=== PATIENT | male | born 1975 | race Caucasian/White ===

== ENCOUNTER 2020-01-11 13:22 | Emergency (ER) | payer OTHER, MEDICAID ==
[~2020-01-11] VITALS: Ht 172.7 cm; Wt 63.5 kg
[2020-01-11 14:25] VITALS: BP 102/55
[2020-01-11] MEDS ORDERED: ACETAMINOPHEN 500 MG TAB PO ONE (14:30)
[2020-01-11] MEDS ORDERED: ACETAMINOPHEN 325 MG TAB PO ONE (14:30)
== END 2020-01-11 17:26 | disposition home or self-care (01) ==
LOC: ER 13:22
DX: M48.061 Spinal stenosis, lumbar region without neurogenic claudication (principal); M54.16 Radiculopathy, lumbar region
CPT/HCPCS: 72131

== ENCOUNTER 2025-03-03 19:46 | Inpatient (IN) | payer OTHER, MEDICAID ==
[~2025-03-03] VITALS: Ht 172.7 cm; Wt 64.2 kg
[2025-03-03 20:04] VITALS: BP 119/69; PULSE 84; RESP 18; TEMP 99.1; O2SAT 100
--- NOTE | 2025-03-03 20:17 | ED.PDOC ---
Musculoskeletal HPI Comments HPI: 49 year old male presents to the ED with chief complaint of left foot/calf swelling and pain. Patient reports that he had started to experience sudden left lower leg and foot swelling 2 days ago with associated pain when walking. Patient relays that when he rests there is no pain to his leg. Patient denies any SOB, chest pain, numbness, weakness, dizziness, headache, or N/V. Initial Vitals: Temp: 99.1F BP: 119/69 HR: 84 RR: 18 O2 Sat: 100% Medical History: Schizophrenia, Lumbar Foraminal Stenosis, Lumbar Radiculopathy Surgical History: Denies Social History: Denies smoking, ETOH, or drug use. Medications: Reviewed. Allergies: NKDA HPI: Poor Historian. Pain with ambulation. Denies any chest pain or shortness of breath. Calf is swollen and tender to palpation. Denies any fall or trauma or injury. REVIEW OF SYSTEMS: CONSTITUTIONAL: Denies acute: fever, diaphoresis, chills, generalized weakness. HEAD: Denies acute: headache, photophobia Eyes: Denies acute: Double vision, vision loss, eye pain, eye discharge. EARS: Denies acute: tinnitus, hearing loss, ear discharge, ear pain, THROAT: Denies acute: sore throat, swelling, difficulty swallowing , pain with swallowing, change in voice. NECK: Denies acute: neck pain, neck swelling, stiff neck. HEART: Denies acute : chest pain, palpitations, LUNGS: Denies acute: SOB, wheezing, cough, hemoptysis ABDOMEN: Denies acute: abdominal pain, Nausea, Vomiting, diarrhea, melena , hematemesis, hematochezia SKIN: Denies acute: rash, redness, lesions, itchiness. EXTREMITIES: Denies acute: calf pain, numbness, tingling, weakness, Denies acute: Low back pain. Neuro: Denies acute: focal neurological deficit, motor or sensory focal neurological deficit, tremors, seizure like activity, confusion, dizziness, change in mental status, loss of bowel or bladder function, cauda equina like symptoms. : Denies acute: dysuria, hematuria, flank pain, increase in urinary frequency. PSYCH: Denies acute: hallucination, suicidal ideation, homicidal ideation. PHYSICAL EXAM: General: ----mild----acute distress, awake and alert. Head: normocephalic, atraumatic. Neck: supple, trachea is midline, no swelling. Throat: Normal phonation. Eyes:, no erythema, no purulent discharge, no proptosis, no icterus. Heart: regular rate, regular rhythm, no significant murmur appreciated. Lungs: no apparent respiratory distress, Able to speak in full sentences. No wheezing, no rhonchi, no crackles. No stridors Clear to auscultation bilaterally. Abdomen: non tender to palpation, non distended, soft, no guarding, no rebound, + bowel sounds. Neuro: Awake, Alert, oriented to name, self, situation, follows commands GCS=15. Speech is normal. Skin: no petechia, no purpura, no cyanosis, non-pale, not jaundice. Left Lower extremities: --2/4 - Pitting edema no deformity, noted generalized swelling [id number] to the ankle. Noted left calf tenderness to palpation. Patient is neurovascularly intact in the affected extremity. Pedal pulses palpable. Motor and sensory are present. Makes eye contact. moves all four extremities. Face: no apparent facial droop. Ambulating in the ED independently. ED COURSE: Chief Complaint: Extremity Swelling Time Seen by MD: 20:06 Primary Care Provider: TAI Reviewed Notes: Nurses Notes, Medications, Allergies Allergies: Uncoded Allergies: CHICKEN FEATHERS (Allergy, Severe, 01/11/20) Information Source: Patient Mode of Arrival: Ambulatory Location: Left Was a procedure done? Was a procedure done?: No Differential Diagnosis EXT Differential Diagnosis: Other (Leg swellingDdx include but not limited to DVT, ischemic limb, pitting edema, volume overload, CHF, cellulitis, hematoma, compartment syndrome, dependent edema, venous stasis. Insert red cellulitis) X-Ray, Labs, Meds, VS Vital Signs Date Time Temp Pulse Resp B/P (MAP) Pulse Ox O2 Delivery O2 Flow Rate FiO2 03/03/25 20:04 99.1 84 18 119/69 (86) 100 99.1 Lab Test 03/03/25 22:40 03/03/25 20:28 Range/Units D-Dimer, Quantitative 0.49 0.0-0.49 mg/L FEU White Blood Count 9.2 4.4-10.8 10^3/uL Red Blood Count 4.42 L 4.5-5.90 10^6/uL Hemoglobin 14.3 13.5-17.5 g/dL Hematocrit 42.1 41.0-53.0 % Mean Corpuscular Volume 95.2 80.0-100.0 fL Mean Corpuscular Hemoglobin 32.3 H 28.0-32.0 pg Mean Corpuscular Hemoglobin Concent 33.9 32.0-36.0 g/dL Red Cell Distribution Width 13.4 11.8-14.3 % Platelet Count 353 140-450 10^3/uL Mean Platelet Volume 6.6 L 6.9-10.8 fL Neutrophils (%) (Auto) 61.3 37.0-80.0 % Lymphocytes (%) (Auto) 20.9 10.0-50.0 % Monocytes (%) (Auto) 14.3 H 0.0-12.0 % Eosinophils (%) (Auto) 2.4 0.0-7.0 % Basophils (%) (Auto) 1.1 0.0-2.0 % Neutrophils # (Auto) 5.7 1.6-8.6 10 ^3/uL Lymphocytes # (Auto) 1.9 0.4-5.4 10 ^3/uL Monocytes # (Auto) 1.3 0-1.3 10 ^3/uL Eosinophils # (Auto) 0.2 0-0.8 10 ^3/uL Basophils # (Auto) 0.1 0-0.2 10 ^3/uL Nucleated Red Blood Cells 0.1 % Erythrocyte Sedimentation Rate 22 H 0-20 mm/hr Sodium Level 137 136-145 mmol/L Potassium Level 3.9 3.5-5.1 mmol/L Chloride Level 103 98-107 mmol/L Carbon Dioxide Level 24 20-31 mmol/L Anion Gap 10 5-15 Blood Urea Nitrogen 20 9-23 mg/dL Creatinine 0.95 0.700-1.30 mg/dL Glomerular Filtration Rate Calc 98 >90 mL/min BUN/Creatinine Ratio 21.1 H 10.0-20.0 Serum Glucose 89 74-106 mg/dL Lactic Acid Level 1.8 0.4-2.0 mmol/L Calcium Level 9.5 8.7-10.4 mg/dL Total Bilirubin 1.4 H 0.2-1.0 mg/dL Aspartate Amino Transferase (AST) 32 13-40 U/L Alanine Aminotransferase (ALT) 31 7-40 U/L Alkaline Phosphatase 119 H 46-116 U/L Troponin I High Sensitivity < 3 L </=54 ng/L C-Reactive Protein High Sensitivity 5.25 H <1.0 mg/dL B-Type Natriuretic Peptide 9.85 0-100 pg/mL Total Protein 6.9 5.7-8.2 g/dL Albumin 4.6 3.2-4.8 g/dL [place] [address] Ph: [phone] DIAGNOSTIC IMAGING Diagnostic Imaging Report : [id number] Signed PATIENT: JOSE AMES ACCT: [id number] UNIT: [id number] : 1975 LOC: ER ROOM / BED: / AGE / SEX: 49 / M ADM STATUS: REG ER SERVICE 13 ORDERING PHYSICIAN: STEFAN MOCTEZUMA DO PROCEDURE(s): LLDVT - LT Lower DVT REASON: pain swelling ORDER NUMBER(s): [id number], ACCESSION NUMBER(s): [id number] Left lower extremity venous duplex Clinical History: pain swelling Comparison: None Technique: Duplex Doppler evaluation of the deep venous system of the left lower extremity from the common femoral vein to the popliteal vein including color Doppler and spectral/pulsed waveform analysis was performed. Findings: The common femoral vein demonstrates appropriate compressibility and waveform variability. There is compressibility/patency of the great saphenous vein at the proximal thigh. The femoral vein demonstrates appropriate compressibility and waveform variability. The deep femoral vein demonstrates appropriate compressibility and waveform variability. The popliteal vein demonstrates appropriate compressibility and waveform variability. There is normal compressibility at the tibioperoneal trunk. Impression: No evidence of left femoropopliteal venous thrombosis. ATED BY: TEDDY ALMANZA MD DICTATED DATE/TIME: 03/03/252050 SIGNED BY: TEDDY ALMANZA MD SIGNED DATE/TIME: 03/03/252050 CC: Time of 1ST Reevaluation: 21:06 Reevaluation 1ST: Unchanged Patient Education/Counseling: Diagnosis, Treatment Family Education/Counseling: No Family Present Comments Patient presented with the above HPI.---left leg swelling and tenderness to palpation---workup was initiated. patient was found with the above mentioned diagnosis. the following medications were ordered: please refer to order lists of meds and tests obtained by myself Dr. Moctezuma. Patient ED course and VS have been stabilized. Patient has been reassessed in the ED and remained in a stable condition. Pertinent incidental findings were discussed with the patient and/or family. Patient/family voices understanding and is agreeable with plan. Patient has been observed in the ED adequate length of time to insure improvement/stability. Escalation of care considered: Consideration of escalation to observation or admission Rule out compartment syndrome, deep tissue infection, Patient was ADMITTED to the medicine team for further evaluation and treatment of their presentation. Patient was neurovascularly intact in the affected extremity. Pedal pulses palpable. Sensory and motor are present. D-dimer was normal. CRP and ESR were elevated. I started empiric antibiotics for possible cellulitis. All the reports of any imaging studies that were ordered by myself were reviewed by myself. Departure 1 Departure Time of Disposition: 22:44 Impression: Primary Impression: Left leg swelling Disposition: ADMITTED INPATIENT Admit to: [facility] Condition: Guarded Discharged With: Self Critical Care Note Critical Care Time?: No Heart Score Heart Score: Heart Score Response (Comments) Value History Slightly Suspicious 0 EKG Normal 0 Age 45-64 1 Risk Factors No known risk factors 0 Troponin Normal limit 0 Total 1 I personally scribed for STEFAN MOCTEZUMA DO ([email or web address]) on 03/03/25 at 20:17. Electronically submitted by Lawrence Whaley ([email or web address]). I personally scribed for STEFAN MOCTEZUMA DO ([email or web address]) on 03/04/25 at 21:37. Electronically submitted by Mary Maurer ([email or web address]). STEFAN MOCTEZUMA DO Mar 03, 2025 20:17
[2025-03-03 20:44] LABS: Basophils # (auto) 0.1 10 ^3/uL (0-0.2); Basophils % (auto) 1.1 % (0.0-2.0); Eosinophils # (auto) 0.2 10 ^3/uL (0-0.8); Eosinophils % (auto) 2.4 % (0.0-7.0); Hematocrit 42.1 % (41.0-53.0); Hemoglobin 14.3 g/dL (13.5-17.5); Lymphocytes # (auto) 1.9 10 ^3/uL (0.4-5.4); Lymphocytes % (auto) 20.9 % (10.0-50.0); Mean Corpuscular Hemoglobin 32.3 pg (28.0-32.0); Mean Corpuscular Hgb Conc. 33.9 g/dL (32.0-36.0); Mean Corpuscular Volume 95.2 fL (80.0-100.0); Monocytes # (auto) 1.3 10 ^3/uL (0-1.3); Monocytes % (auto) 14.3 % (0.0-12.0); Neutrophils # (auto) 5.7 10 ^3/uL (1.6-8.6); Neutrophils % (auto) 61.3 % (37.0-80.0); Nucleated Red Blood Cells % 0.1 %; Platelet Count (auto) 353 10^3/uL (140-450); Red Blood Cells 4.42 10^6/uL (4.5-5.90); Red Cell Distribution Width 13.4 % (11.8-14.3); White Blood Cell 9.2 10^3/uL (4.4-10.8)
--- NOTE | 2025-03-03 20:53 | DVH ---
Left lower extremity venous duplex Clinical History: pain swelling Comparison: None Technique: Duplex Doppler evaluation of the deep venous system of the left lower extremity from the common femor al vein to the popliteal vein including color Doppler and spectral/pulsed waveform analysis was perfo rmed. Findings: The common femoral vein demonstrates appropriate compressibility and waveform variability. There is compressibility/patency of the great saphenous vein at the proximal thigh. The femoral vein demonstrates appropriate compressibility and waveform variability. The deep femoral vein demonstrates appropriate compressibility and waveform variability. The popliteal vein demonstrates appropriate compressibility and waveform variability. There is normal compressibility at the tibioperoneal trunk. Impression: No evidence of left femoropopliteal venous thrombosis.
[2025-03-03 21:04] LABS: Alanine Aminotransferase 31 U/L (7-40); Albumin 4.6 g/dL (3.2-4.8); Anion Gap 10 (5-15); Aspartate Aminotransferase 32 U/L (13-40); BUN/Creatinine Ratio 21.1 (10.0-20.0); Blood Urea Nitrogen 20 mg/dL (9-23); Calcium 9.5 mg/dL (8.7-10.4); Carbon Dioxide 24 mmol/L (20-31); Chloride 103 mmol/L (98-107); Glucose 89 mg/dL (74-106); Potassium 3.9 mmol/L (3.5-5.1); Sodium 137 mmol/L (136-145); Total Protein 6.9 g/dL (5.7-8.2)
[2025-03-03 21:06] LABS: Alkaline Phosphatase 119 U/L (46-116); Bilirubin, Total 1.4 mg/dL (0.2-1.0)
[2025-03-03 21:33] LABS: Erythrocyte Sedimentation Rate 22 mm/hr (0-20)
[2025-03-03] MEDS ORDERED: CLINDAMYCIN 600MG IV 50 ML IV ONE (23:45)
[2025-03-04 02:11] LABS: Albumin 4.7 g/dL (3.2-4.8); Bilirubin, Total 1.1 mg/dL (0.2-1.0); Total Protein 7.3 g/dL (5.7-8.2)
--- NOTE | 2025-03-04 06:08 | DVHHPRES ---
History of Present Illness Resident Creating Document: ANA ZHENG RESIDENT History of Present Illness Patient is a 49-year-old male with past medical history of schizophrenia, dyslipidemia, who was brought in by son due to left lower extremity pain and discoloration. According to patient's son, 2 days ago patient started limping out of no where due to tenderness along the left calf muscles. Patient notes pain is worse with walking and relieved by sitting. Lexii sign positive, pain worsened by plantar flexion and dorsiflexion of the foot. Denies similar symptoms in the past lower extremity Doppler was negative. Patient noted to have difficulty bearing weight on the left lower extremity, however, is able to ambulate with limping. Past Medical History Schizophrenia, dyslipidemia Past Surgical History Denies Past Social History Smoking: Denies Alcohol: Drinks 1-2 beers daily Drugs: Smokes multiple bowls of marijuana daily Review of Systems Constitutional: No: Fever, Chills, Sweats, Weakness, Malaise, Other Eyes: No: Pain, Vision change, Conjunctivae inflammation, Eyelid inflammation, Other, Redness ENT: No: Ear pain, Ear discharge, Nose pain, Nose discharge, Nose congestion, Mouth pain, Mouth swelling, Throat pain, Throat swelling, Other Respiratory: No: Cough, Dry, Shortness of breath, SOB with excertion, Wheezing, Hemoptysis, Pleuritic Pain, Sputum, Wheezing, Other Cardiovascular: No: Chest Pain, Palpitations, Orthopnea, Paroxysmal Noc. Dyspnea, Edema, Lt Headedness, Other Gastrointestinal: No: Nausea, Vomiting, Abdominal Pain, Diarrhea, Constipation, Melena, Hematochezia, Other Genitourinary: No Dysuria, No Frequency, No Incontinence, No Hematuria, No Retention, No Other Musculoskeletal: leg pain; No: other, neck pain, shoulder pain, arm pain, back pain, hand pain, foot pain Skin: Other (Left calf swollen, tender to palpation); No: Rash, Lesions, Jaundice, Bruising Neurological: No: Weakness, Numbness, Incoordination, Change in speech, Confusion, Seizures, Other Allergies: Uncoded Allergies: CHICKEN FEATHERS (Allergy, Severe, 01/11/20) Exam Vital Signs Vital Signs Date Time Temp Pulse Resp B/P (MAP) Pulse Ox O2 Delivery O2 Flow Rate FiO2 03/03/25 20:04 99.1 84 18 119/69 (86) 100 99.1 General Appearance: Alert, Oriented X3, Cooperative, No acute distress HEENT: Atraumatic, PERRLA, EOMI Respiratory: Clear to auscultation, Normal air movement Cardiovascular: Regular rate, Normal S1, Normal S2 Abdominal: Normal bowel sounds, No tenderness Extremities: No edema, Normal pulses Neuro: Normal speech Psych/Mental Status: Other (Apprehensive about staying in the hospital, states people will harm him. AOx4) Labs/Xrays Labs Test 03/04/25 01:34 03/03/25 22:40 03/03/25 20:28 Range/Units Lactic Acid Level 1.2 0.4-2.0 mmol/L Total Bilirubin 1.1 H 0.2-1.0 mg/dL Aspartate Amino Transferase (AST) 29 13-40 U/L Alanine Aminotransferase (ALT) 30 7-40 U/L Alkaline Phosphatase 116 46-116 U/L Total Protein 7.3 5.7-8.2 g/dL Albumin 4.7 3.2-4.8 g/dL D-Dimer, Quantitative 0.49 0.0-0.49 mg/L FEU White Blood Count 9.2 4.4-10.8 10^3/uL Red Blood Count 4.42 L 4.5-5.90 10^6/uL Hemoglobin 14.3 13.5-17.5 g/dL Hematocrit 42.1 41.0-53.0 % Mean Corpuscular Volume 95.2 80.0-100.0 fL Mean Corpuscular Hemoglobin 32.3 H 28.0-32.0 pg Mean Corpuscular Hemoglobin Concent 33.9 32.0-36.0 g/dL Red Cell Distribution Width 13.4 11.8-14.3 % Platelet Count 353 140-450 10^3/uL Mean Platelet Volume 6.6 L 6.9-10.8 fL Neutrophils (%) (Auto) 61.3 37.0-80.0 % Lymphocytes (%) (Auto) 20.9 10.0-50.0 % Monocytes (%) (Auto) 14.3 H 0.0-12.0 % Eosinophils (%) (Auto) 2.4 0.0-7.0 % Basophils (%) (Auto) 1.1 0.0-2.0 % Neutrophils # (Auto) 5.7 1.6-8.6 10 ^3/uL Lymphocytes # (Auto) 1.9 0.4-5.4 10 ^3/uL Monocytes # (Auto) 1.3 0-1.3 10 ^3/uL Eosinophils # (Auto) 0.2 0-0.8 10 ^3/uL Basophils # (Auto) 0.1 0-0.2 10 ^3/uL Nucleated Red Blood Cells 0.1 % Erythrocyte Sedimentation Rate 22 H 0-20 mm/hr Sodium Level 137 136-145 mmol/L Potassium Level 3.9 3.5-5.1 mmol/L Chloride Level 103 98-107 mmol/L Carbon Dioxide Level 24 20-31 mmol/L Anion Gap 10 5-15 Blood Urea Nitrogen 20 9-23 mg/dL Creatinine 0.95 0.700-1.30 mg/dL Glomerular Filtration Rate Calc 98 >90 mL/min BUN/Creatinine Ratio 21.1 H 10.0-20.0 Serum Glucose 89 74-106 mg/dL Calcium Level 9.5 8.7-10.4 mg/dL Troponin I High Sensitivity < 3 L </=54 ng/L B-Type Natriuretic Peptide 9.85 0-100 pg/mL Assessment/Plan Assessment/Plan Probable left lower extremity cellulitis Ruled out left lower extremity DVT - lower extremity venous Doppler: No evidence of left femoropopliteal venous thrombosis - 1 dose clindamycin - ordered left lower extremity CT scan - cefazolin daily - blood culture - serum lactic acid level - elevated ESR - D-dimer negative History of schizophrenia, nonadherent with medication - monitor Marijuana dependence - counseled DVT prophylaxis: Levonox 40mg Goals of care: Full code, discussed for >16 minutes on 03/04/2025 Plan discussed with patient Plan discussed with Dr. Garcia Plan discussed with: Patient, Spouse, Son, Other (RN) My Orders Orders - ANA ZHENG RESIDENT Procedure Category Date Status Time Admit ADMIT 03/04/25 Transmitted 01:08 Code Status CODE 03/04/25 Transmitted 01:08 Electrocardigram EKG 03/04/25 Logged 01:08 Blood Culture BRENDEN 03/04/25 In Process 01:08 Urinalysis LAB 03/04/25 Logged 01:08 Drug Screen LAB 03/04/25 Logged 01:08 Hepatic Panel LAB 03/04/25 In Process 01:08 Mrsa Screen BRENDEN 03/04/25 Logged 01:18 Date of Service: Mar 04, 2025 Billing Provider: JUAN GARCIA MD Common Visit Codes: [id number] INP/OBS CARE (HIGH) ANA ZHENG RESIDENT Mar 04, 2025 06:08 JUAN GARCIA MD Mar 04, 2025 10:03
[2025-03-04] MEDS ORDERED: ENOXAPARIN SOD 40 MG/0.4 ML SYRINGE SC SCH (10:00)
--- NOTE | 2025-03-04 12:47 | DVHDSRES ---
Discharge Summary Date of Admission Resident Creating Document: ANA ZHENG RESIDENT Mar 04, 2025 at 01:08 Date of Discharge: Mar 04, 2025 Admitting Diagnosis L lower extremity pain Labs/Diagnostic Data: Laboratory Results Test 03/04/25 01:34 03/03/25 22:40 03/03/25 20:28 Lactic Acid Level 1.2 mmol/L (0.4-2.0) Total Bilirubin 1.1 mg/dL (0.2-1.0) Aspartate Amino Transferase (AST) 29 U/L (13-40) Alanine Aminotransferase (ALT) 30 U/L (7-40) Alkaline Phosphatase 116 U/L (46-116) Total Protein 7.3 g/dL (5.7-8.2) Albumin 4.7 g/dL (3.2-4.8) D-Dimer, Quantitative 0.49 mg/L FEU (0.0-0.49) White Blood Count 9.2 10^3/uL (4.4-10.8) Red Blood Count 4.42 10^6/uL (4.5-5.90) Hemoglobin 14.3 g/dL (13.5-17.5) Hematocrit 42.1 % (41.0-53.0) Mean Corpuscular Volume 95.2 fL (80.0-100.0) Mean Corpuscular Hemoglobin 32.3 pg (28.0-32.0) Mean Corpuscular Hemoglobin Concent 33.9 g/dL (32.0-36.0) Red Cell Distribution Width 13.4 % (11.8-14.3) Platelet Count 353 10^3/uL (140-450) Mean Platelet Volume 6.6 fL (6.9-10.8) Neutrophils (%) (Auto) 61.3 % (37.0-80.0) Lymphocytes (%) (Auto) 20.9 % (10.0-50.0) Monocytes (%) (Auto) 14.3 % (0.0-12.0) Eosinophils (%) (Auto) 2.4 % (0.0-7.0) Basophils (%) (Auto) 1.1 % (0.0-2.0) Neutrophils # (Auto) 5.7 10 ^3/uL (1.6-8.6) Lymphocytes # (Auto) 1.9 10 ^3/uL (0.4-5.4) Monocytes # (Auto) 1.3 10 ^3/uL (0-1.3) Eosinophils # (Auto) 0.2 10 ^3/uL (0-0.8) Basophils # (Auto) 0.1 10 ^3/uL (0-0.2) Nucleated Red Blood Cells 0.1 % Erythrocyte Sedimentation Rate 22 mm/hr (0-20) Sodium Level 137 mmol/L (136-145) Potassium Level 3.9 mmol/L (3.5-5.1) Chloride Level 103 mmol/L (98-107) Carbon Dioxide Level 24 mmol/L (20-31) Anion Gap 10 (5-15) Blood Urea Nitrogen 20 mg/dL (9-23) Creatinine 0.95 mg/dL (0.700-1.30) Glomerular Filtration Rate Calc 98 mL/min (>90) BUN/Creatinine Ratio 21.1 (10.0-20.0) Serum Glucose 89 mg/dL (74-106) Calcium Level 9.5 mg/dL (8.7-10.4) Troponin I High Sensitivity < 3 ng/L (</=54) B-Type Natriuretic Peptide 9.85 pg/mL (0-100) Other Laboratory Tests 03/03/25 20:28 Brief Hx & Hospital Course: Patient is a 49-year-old male with past medical history of schizophrenia, dyslipidemia, who was brought in by son due to left lower extremity pain and discoloration. According to patient's son, 2 days ago patient started limping out of no where due to tenderness along the left calf muscles. Patient notes pain is worse with walking and relieved by sitting. Lexii sign positive, pain worsened by plantar flexion and dorsiflexion of the foot. Denies similar symptoms in the past lower extremity Doppler was negative. Patient noted to have difficulty bearing weight on the left lower extremity, however, is able to ambulate with limping. Hospital course: Lower extremity Doppler was negative, patient was given 1 dose of clindamycin. Left lower extremity CT scan was ordered and patient was started on cefazolin daily starting 03/04/2025. Blood culture serum lactic acid levels were order D- dimer was negative and ESR was elevated. However, patient left against medical advice before further evaluation and management could be completed. Condition at Discharge: Undetermined Final Diagnosis/Problems List Probable left lower extremity cellulitis Ruled out left lower extremity DVT History of schizophrenia, nonadherent with medication Marijuana dependence Discharge Disposition: AMA Discharge Statement: "Patient was advised to return to the ER or call 911 if any headaches, dizziness, shortness of breath, chest pain, abdominal pain, bleeding, fevers, or worsening of medical condition. Patient was counseled about treatment plan, medications, possible side effects, patientverbalized understanding. All questions were answered to the best of my ability. This discharge took greater then 30 minutes in planning, reviewing documentation, counseling the patient, and discussing with other team members." ASSESSMENT ASSESSMENT Assessment Date of Service: Mar 04, 2025 Billing Provider: JUAN MAYES MD Common Visit Codes: 01748-DSB/OBS DISCH DAY <30MIN ANA ZHENG Mar 04, 2025 12:47 JUAN MAYES MD Mar 04, 2025 18:15
[2025-03-04 16:44] LABS: Bilirubin, Direct 0.3 mg/dL (<0.3)
[2025-03-04 16:52] LABS: CRP High Sensitivity 5.25 mg/dL (<1.0)
== END 2025-03-04 01:37 | disposition left against medical advice (07) | DRG 603 ==
LOC: ER 19:46 → OVERFLOW 03-04 01:08
PROVIDERS: ATTEND Emergency Medicine
DX: L03.116 Cellulitis of left lower limb (principal); F19.20 Other psychoactive substance dependence, uncomplicated; F20.9 Schizophrenia, unspecified; Z53.29 Procedure and treatment not carried out because of patient's decision for other reasons; E78.5 Hyperlipidemia, unspecified; F12.20 Cannabis dependence, uncomplicated; Z91.148 Patient's other noncompliance with medication regimen for other reason; Z79.899 Other long term (current) drug therapy
CPT/HCPCS: 36415; 80053; 80076; 83605; 83880; 84484; 85025; 85379; 85652; 86141; 87040; 93971; G0378